=== PATIENT | female | born 1985 | race Caucasian/White ===

== ENCOUNTER 2017-04-04 00:19 | Emergency (ER) | payer SELFPAY ==
[~2017-04-04] VITALS: Ht 144.8 cm; Wt 105.9 kg
[~2017-04-04 00:19] MED LIST: ACET-66 PO
[2017-04-04 01:00] VITALS: BP 132/81
[2017-04-04] MEDS ORDERED: LIDOCAINE HCL 1% 10 ML VIAL INJ ONE (01:00)
[2017-04-04] MEDS ORDERED: ACETAMINOPHEN 325 MG TABLET PO ONE (01:00)
[2017-04-04] MEDS ORDERED: MUPIROCIN CALCIUM 2% 22 GM OINTMENT TP ONE (01:00)
[2017-04-04] MEDS ORDERED: POVIDONE-IODINE 10% 15 ML SOLUTION UD TP ONE (01:00)
== END 2017-04-04 01:55 | disposition home or self-care (01) ==
LOC: EMS 00:20
DX: L03.012 Cellulitis of left finger (principal)
CPT/HCPCS: 10060; 99283; J3490

== ENCOUNTER 2017-06-20 17:59 | Emergency (ER) | payer MEDICAID ==
[~2017-06-20] VITALS: Ht 144.8 cm; Wt 124.5 kg
[2017-06-20] MEDS ORDERED: FLUCONAZOLE 200 MG TABLET PO ONE (21:00)
[2017-06-20] MEDS ORDERED: KETOROLAC TROMETHAMINE 60 MG/2 ML VIAL IM ONE (21:00)
[2017-06-20] MEDS ORDERED: CEPHALEXIN MONOHYDRATE 500 MG CAPSULE PO ONE (21:00)
[2017-06-20 21:21] VITALS: BP 144/82
== END 2017-06-20 22:03 | disposition home or self-care (01) ==
LOC: EMS 18:02
DX: B37.3 Candidiasis of vulva and vagina (principal); N76.4 Abscess of vulva; I10 Essential (primary) hypertension; E66.9 Obesity, unspecified; Z68.43 Body mass index [BMI] 50.0-59.9, adult
CPT/HCPCS: 96372; 99283; J1885

== ENCOUNTER 2018-11-25 14:54 | Emergency (ER) | payer SELFPAY ==
[~2018-11-25] VITALS: Ht 162.6 cm; Wt 127.3 kg
[2018-11-25] MEDS ORDERED: METF-960 PO (15:23)
[2018-11-25 15:29] LABS: GLUCOSE,POINT OF CARE 413 MG/DL (70-110)
[2018-11-25 18:34] LABS: GLUCOSE,POINT OF CARE 292 MG/DL (70-110)
[2018-11-25] MEDS: HYDROCODONE/ACETAMINOPHEN 5-325 MG TABLET PO ONE (19:32)
[2018-11-25] MEDS: POVIDONE-IODINE 10% 15 ML SOLUTION UD TP ONE (19:33)
[2018-11-25] MEDS: LIDOCAINE 1% 10 ML VIAL INJ ONE (19:33)
[2018-11-25 20:06] VITALS: BP 128/64
== END 2018-11-25 20:08 | disposition home or self-care (01) ==
LOC: EMS 14:54
DX: L03.311 Cellulitis of abdominal wall (principal); L02.211 Cutaneous abscess of abdominal wall; E11.9 Type 2 diabetes mellitus without complications; Z79.84 Long term (current) use of oral hypoglycemic drugs
CPT/HCPCS: 10060; 82962; 99283; J3490

== ENCOUNTER 2018-11-30 18:19 | Emergency (ER) | payer SELFPAY ==
[~2018-11-30] VITALS: Ht 142.2 cm; Wt 90.9 kg
[~2018-11-30 18:19] MED LIST changes: -ACET-66 PO; +METF-960 PO
[2018-11-30 20:15] VITALS: BP 134/80
[2018-12-01 09:46] LABS: GLUCOSE,POINT OF CARE 298 MG/DL (70-110)
== END 2018-11-30 20:21 | disposition home or self-care (01) ==
LOC: EMS 18:19
DX: E11.65 Type 2 diabetes mellitus with hyperglycemia (principal); Z48.00 Encounter for change or removal of nonsurgical wound dressing; Z79.84 Long term (current) use of oral hypoglycemic drugs

== ENCOUNTER 2021-06-14 20:54 | Emergency (ER) | payer MEDICAID ==
[~2021-06-14] VITALS: Ht 149.9 cm; Wt 95.9 kg
[~2021-06-14 20:54] MED LIST changes: +METF-1211 PO; -METF-960 PO
[2021-06-14 21:25] VITALS: BP 130/79
[2021-06-14] MEDS ORDERED: LIDOCAINE 1% 10 ML VIAL ONE (22:10)
[2021-06-14] MEDS ORDERED: LIDOCAINE 1% 10 ML VIAL ID ONE (22:15)
== END 2021-06-14 22:45 | disposition home or self-care (01) ==
LOC: EMS 20:57
DX: L02.412 Cutaneous abscess of left axilla (principal); E11.9 Type 2 diabetes mellitus without complications; Z79.84 Long term (current) use of oral hypoglycemic drugs
CPT/HCPCS: 10160; 99284; J3490

== ENCOUNTER 2021-06-19 13:35 | Emergency (ER) | payer MEDICAID ==
[~2021-06-19] VITALS: Ht 165.1 cm; Wt 113.6 kg
[2021-06-19] MEDS ORDERED: ACETAMINOPHEN 500 MG TABLET PO ONE (14:15)
[2021-06-19] MEDS ORDERED: LIDOCAINE 1% 10 ML VIAL SQ ONE (14:15)
[2021-06-19] MEDS ORDERED: DOXYCYCLINE HYCLATE 100 MG TABLET PO ONE (15:15)
[2021-06-19 16:20] VITALS: BP 123/73
== END 2021-06-19 16:30 | disposition home or self-care (01) ==
LOC: EMS 13:36
DX: L02.411 Cutaneous abscess of right axilla (principal)
CPT/HCPCS: 10060; 99283; J3490

== ENCOUNTER 2021-10-28 19:05 | Emergency (ER) | payer MEDICAID ==
[~2021-10-28] VITALS: Ht 139.7 cm; Wt 89.0 kg
[2021-10-28] MEDS ORDERED: POVIDONE-IODINE 10% 15 ML SOLUTION UD TP ONE (21:00)
[2021-10-28] MEDS ORDERED: LIDOCAINE 1%/EPI 1:100,000 30 ML VIAL PERC ONE (21:00)
[2021-10-28] MEDS ORDERED: CEPH500C3 PO (22:19)
[2021-10-28] MEDS ORDERED: IBUP-2070 PO (22:20)
[2021-10-28] MEDS ORDERED: SULF-261 PO (22:30)
[2021-10-28 22:59] VITALS: BP 118/71
== END 2021-10-28 23:04 | disposition home or self-care (01) ==
LOC: EMS 19:07
DX: L03.317 Cellulitis of buttock (principal); L02.31 Cutaneous abscess of buttock; Z79.899 Other long term (current) drug therapy
CPT/HCPCS: 10060; 99283; J3490

== ENCOUNTER 2021-10-31 23:10 | Emergency (ER) | payer MEDICAID ==
[~2021-10-31] VITALS: Ht 139.7 cm; Wt 72.7 kg
[~2021-10-31 23:10] MED LIST changes: +CEPH500C3 PO; +IBUP-2070 PO; -METF-1211 PO; +SULF-261 PO
[2021-11-01 00:09] VITALS: BP 127/78
== END 2021-11-01 02:00 | disposition home or self-care (01) ==
LOC: EMS 23:13
DX: L02.31 Cutaneous abscess of buttock (principal); Z48.00 Encounter for change or removal of nonsurgical wound dressing; Z79.899 Other long term (current) drug therapy
CPT/HCPCS: 99281